=== PATIENT | female | born 1995 | race Caucasian/White ===

== ENCOUNTER 2017-03-06 19:04 | Emergency (ER) | payer OTHER ==
[~2017-03-06] VITALS: Ht 165.1 cm; Wt 53.7 kg
[2017-03-06 19:07] VITALS: BP 123/81
[2017-03-06] MEDS ORDERED: ONDANSETRON 2MG/ML, 2ML ONE (19:27)
[2017-03-06] MEDS ORDERED: FAMOTIDINE 20 MG/2 ML ONE (19:27)
[2017-03-06] MEDS ORDERED: ONDANSETRON 2MG/ML, 2ML IVPush ONE (19:30)
[2017-03-06] MEDS ORDERED: FAMOTIDINE 20 MG/2 ML IVP ONE (19:30)
[2017-03-06] MEDS ORDERED: SODIUM CHLORIDE 0.9% 1,000ML IVBOLUS ONE (19:30)
[2017-03-06] MEDS ORDERED: SODIUM CHLORIDE FLUSH 10ML SYR IVF ONE (19:30)
[2017-03-06 20:00] LABS: HEMATOCRIT 48.2 % (34.6-47.8); HEMOGLOBIN 16.7 g/dL (11.7-16.4); WHITE BLOOD COUNT 17.3 x10^3/uL (3.4-10)
[2017-03-06 20:12] LABS: BLOOD UREA NITROGEN 15 mg/dL (7-18)
== END 2017-03-06 20:36 | disposition home or self-care (01) ==
LOC: ED 20:10
DX: R11.2 Nausea with vomiting, unspecified (principal); R19.7 Diarrhea, unspecified
CPT/HCPCS: 36415; 80048; 81003; 82040; 84703; 85025; 96361; 96374; 96375; 99284; J2405; J7030; S0028